=== PATIENT | male | born 1995 | race Caucasian/White ===

== ENCOUNTER 2025-05-24 14:02 | Emergency (ER) | payer OTHER, SELFPAY ==
[2025-05-24 14:02] VITALS: BP 160/107; PULSE 108; RESP 16; TEMP 36.6; O2SAT 94
--- NOTE | 2025-05-24 14:14 | ED.GENADULT ---
HPI - General Adult General Chief complaint: Extremity Injury, Lower Stated complaint: swelling to left knee Time Seen by Provider: 05/24/25 14:13 History of Present Illness HPI narrative: Denny is a previously healthy 29M that presented to the ED with redness and swelling to his left medial knee for a couple days that has become more warm, tender and erythematous. No fevers or systemic symptoms. Related Data Allergies Allergy/AdvReac Type Severity Reaction Status Date / Time No Known Allergies Allergy Verified 05/24/25 14:09 Review of Systems Review of Systems: All systems reviewed & are unremarkable except as noted in HPI and below Exam Const: General: cooperative, healthy appearing, comfortable, no acute distress, well developed, alert, awake and Physically active Orientation/consciousness: oriented to person, oriented to place and oriented to time HENMT: Head: normal to inspection, normocephalic and atraumatic Ears: hearing grossly normal bilaterally and external ears normal Face/Nose/Sinus: Normal external nose present Eyes: General: appearance normal, both eyes and all related structures Periorbital: periorbital findings normal Sclera: sclerae normal Pupils: Equal, round and reactive pupils present Neck: Neck: normal visual inspection Chest: Chest palpation & inspection: normal inspection of the chest Resp: Effort & Inspection: normal respiratory effort, able to speak in complete sentences and no respiratory distress Cardio: Jugular venous distension: no JVD Skin: General skin exam: normal color and no rashes or lesions noted Other: erythematous rash that is warmth tender on left anterior medial knee Neuro: General: oriented to person, oriented to place and oriented to time Cranial nerves: Yes Equal, round and reactive pupils present Extrem: General: normal to inspection Course Vital Signs Vital signs: Vital Signs Temperature 97.9 F 05/24/25 14:02 Pulse Rate 108 H 05/24/25 14:02 Respiratory Rate 16 05/24/25 14:02 Blood Pressure 160/107 H 05/24/25 14:02 Pulse Oximetry 94 05/24/25 14:02 Oxygen Delivery Room Air 05/24/25 14:02 Temperature 97.9 F 05/24/25 14:02 Pulse Rate 108 H 05/24/25 14:02 Respiratory Rate 16 05/24/25 14:02 Blood Pressure 160/107 H 05/24/25 14:02 Pulse Oximetry 94 05/24/25 14:02 Oxygen Delivery Room Air 05/24/25 14:02 Medical Decision Making Vital Signs Vital Signs: Vital Signs Temperature 97.9 F 05/24/25 14:02 Pulse Rate 108 H 05/24/25 14:02 Respiratory Rate 16 05/24/25 14:02 Blood Pressure 160/107 H 05/24/25 14:02 Pulse Oximetry 94 05/24/25 14:02 Oxygen Delivery Room Air 05/24/25 14:02 Temperature 97.9 F 05/24/25 14:02 Pulse Rate 108 H 05/24/25 14:02 Respiratory Rate 16 05/24/25 14:02 Blood Pressure 160/107 H 05/24/25 14:02 Pulse Oximetry 94 05/24/25 14:02 Oxygen Delivery Room Air 05/24/25 14:02 Discharge Plan Discharge Clinical Impression: Cellulitis Patient Disposition: Home Condition: Stable Instructions: Antibiotic Form Patient Language: Divehi Prescriptions: New cephalexin 500 mg tablet 500 mg PO Q8H Qty: 15 0RF Follow-up/Referrals: Satnam Nava MD [Primary Care Provider, Internal Medicine]
[2025-05-24] MEDS: CEPHALEXIN 500 MG CAPSULE PO (14:21)
== END 2025-05-24 14:25 | disposition home or self-care (01) ==
LOC: CHSED 14:25
PROVIDERS: Emergency Provider Family Medicine; Referring Provider Family Medicine
DX: L03.116 Cellulitis of left lower limb (principal)
CPT/HCPCS: 99283; A9270